=== PATIENT | male | born 1980 | race Caucasian/White ===

== ENCOUNTER 2016-10-27 12:37 | Emergency (ER) | payer OTHER, BC ==
[2016-10-27] MEDS ORDERED: KETOROLAC TROMETHAMINE 60 MG/2 ML VIAL IM ONE (14:29)
[2016-10-27] MEDS: KETOROLAC TROMETHAMINE 60 MG/2 ML VIAL IM ONE (14:32)
--- NOTE | 2016-10-27 14:34 | ERNOTE ---
Upper Extremity HPI - Narrative Date of Service: 10/27/16 - General Extremities Pain Location: shoulder: left - pain with movement Time Seen by Provider: 10/27/16 14:12 Source: patient Exam Limitations: no limitations - Immun/Allergies/Home Medications Immunizations: IMMUNIZATION HX Immunizations Up to Date Yes History of Influenza Vaccine No Hx Pneumococcal Vaccination No Allergies/Adverse Reactions: Allergies Allergy/AdvReac Type Severity Reaction Status Date / Time No Known Allergies Allergy Unverified 05/07/13 09:37 Home Medications: HOME MEDICATIONS Flexeril 05/07/13 [Last Taken Unknown] Ibuprofen 05/07/13 [Last Taken Unknown] Tylenol 05/07/13 [Last Taken Unknown] Cyclobenzaprine HCl [Flexeril] 10 mg PO TID PRN #12 tablet 10/27/16 [Last Taken Unknown] - History of Present Illness Occurred: last week Severity: moderate Method of Injury: Reports: no apparent injury Modifying Factors - (Improves): Reports: pain medication Modifying Factors - (Worsens): Reports: movement Associated Symptoms: Reports: loss of power (lt arm) Other Injuries: Reports: none Prior Treament: Reports: other - Denies Review of Systems - Narrative Narrative: Patient states over the past week he has developed discomfort in his left shoulder. States movement causes a sharp pain which improves with rest. Denies any loss of sensation or N/T. Denies any acute injury. - Review of Systems Constitutional: Present: no symptoms reported Musculoskeletal: Present: muscle pain, muscle stiffness, other - States located right over his left shoulder joint and does not radiate anywhere else. Denies loosing ROM but is limited due to his discomfort. Skin: Present: no symptoms reported Neurological: Present: no symptoms reported Endocrine: Present: no symptoms reported Hematologic/Lymphatic: Present: no symptoms reported - Patient's Past Medical History Patient History - Medical: No pertinent hx Patient History - Cardiac/Respiratory: No pertinent hx Patient History - Cancer: No Hx of Cancer Patient History - Surgical Procedures: No surgical history Patient History - Other: None - Social History Living Situations: home Psych History: No pertinent hx Smoking Status: Never smoker Have you smoked in the past 12 months: No Do you dip or chew tobacco: No - Immunizations Immunizations Up to Date: Yes Hx Pneumococcal Vaccination: No History of Influenza Vaccine: No Physical Exam - Physical Exam General Appearance: Present: wd/wn, alert, no apparent distress Head Exam: Present: normal inspection Neck: Present: normal inspection, nontender, supple, full range of motion Respiratory: Present: no respiratory distress, no accessory muscle use Extremity Exam: Present: decreased range of motion, other - Tenderness over AC joint. Full ROM including crossover, rotation, flexion/extension. However upward above 90 degrees begins to have some discomfort and weakness. Distal sensation intact. Radial pulse strong. Cap refill <2 seconds. Neurological Exam: Present: alert, oriented, normal mood/affect, no motor/ sensory deficits Skin Exam: Present: normal color, warm/dry ED Progress - Vital Signs Patient's Vital Signs:: I have reviewed the patient's vital signs. Vital Signs: Vital Signs 10/27/16 12:45 Temperature 36.8 C Pulse Rate 72 Respiratory 16 Rate Blood Pressure 119/58 O2 Sat by Pulse 98 Oximetry - X-Ray X-Ray #1 X-Ray: shoulder - left Interpretation: Reviewed by me X-ray Comments: No acute fx. - Progress/Reassessment Chief Complaint: Shoulder Injury/Pain Progress:: Improved Departure Clinical Impression: Arthralgia of acromioclavicular joint - Departure Disposition: Home Follow Up Needed Condition: Good Instructions: Shoulder Range of Motion Exercises Additional Instructions: Follow up with family provider at the beginning of next week to discuss if physical therapy is needed. Continue the ibuprofen 800mg every 6 hrs with food as needed. Muscle relaxants may make you drowsy so take with caution. No driving. If you worsen or do not improve let us know. May also try a heating pad. Referrals: Xochitl Vo FNP [Primary Care Provider] - Prescriptions: Cyclobenzaprine HCl [Flexeril] 10 mg PO TID PRN #12 tablet PRN Reason: Pain
[2016-10-27 14:36] VITALS: BP 126/88
== END 2016-10-27 14:57 | disposition home or self-care (01) ==
LOC: ER 12:37
DX: M25.512 Pain in left shoulder (principal)